=== PATIENT | male | born 1965 | race Caucasian/White ===

== ENCOUNTER 2020-12-10 06:45 | Day surgery (SDC) | payer BC ==
[~2020-12-10 06:45] MED LIST: Lactated Ringers 1,000 ML IV SCH
[2020-12-10] MEDS ORDERED: Lactated Ringers 1,000 ML IV SCH (07:00)
[2020-12-10] MEDS ORDERED: Sodium Chloride 0.9% 10 ML Syringe FLUSH PRN (07:00)
[2020-12-10] MEDS ORDERED: Citric Acid/Sodium Citrate Solution 30 ML Cup PO ONE (07:27)
[2020-12-10] MEDS ORDERED: Citric Acid/Sodium Citrate Solution 30 ML Cup ONE (07:43)
[2020-12-10] MEDS ORDERED: Propofol 200 MG/20 ML SDV ONE ×2 (07:45→08:00)
[2020-12-10] MEDS ORDERED: fentaNYL 100 MCG/2 ML SDV ONE (07:45)
[2020-12-10 08:42] VITALS: BP 134/91; PULSE 77
--- NOTE | 2020-12-10 11:32 | OR ---
PREOPERATIVE DIAGNOSIS: Family history of colon cancer. POSTOPERATIVE DIAGNOSIS: Family history of colon cancer. PROCEDURE PERFORMED: Total flexible colonoscopy. ANESTHESIA: MAC anesthesia. COMPLICATIONS: None apparent. BLOOD LOSS: None. FINDINGS: Normal total colonoscopy. START TIME: 0751. CECUM TIME: 0800. STOP TIME: 0819. BOWEL PREP: [place] class 2. INDICATIONS FOR PROCEDURE: Mr. Pate is a 55-year-old male who has a family history of colorectal cancer. His last scope was 5 years ago. He has never had any polyps. He denies a history of bloody or dark black stools. DETAILS OF PROCEDURE: After informed consent was obtained, the patient was brought to the procedure room and placed in left lateral decubitus position. MAC anesthesia was induced by Anesthesia colleagues. Colonoscope was introduced into the rectum and advanced all the way to the cecum. The appendiceal orifice was photographed. Terminal ileum was intubated and photographed. Colonoscope was then slowly withdrawn. There was a large amount of liquid stool which significantly increased the withdrawal time for this patient as we had to spend some time suctioning that. No pathology was noted. Retroflexed view was obtained and the colonoscope was withdrawn. The patient tolerated the procedure well and was awoken from anesthesia by Anesthesia colleagues without incident. RKM: 12/10/2020 08:26:37 MODL: 12/10/2020 09:39:41 /[id number]
== END 2020-12-10 09:35 | disposition home or self-care (01) ==
LOC: VM.SDS 06:45
PROVIDERS: ATTEND Student in an Organized Health Care Education/Training Program
DX: Z12.11 Encounter for screening for malignant neoplasm of colon (principal); Z80.0 Family history of malignant neoplasm of digestive organs; E11.9 Type 2 diabetes mellitus without complications; E66.9 Obesity, unspecified; I10 Essential (primary) hypertension; Z87.891 Personal history of nicotine dependence; Z79.84 Long term (current) use of oral hypoglycemic drugs; E78.49 Other hyperlipidemia; Z79.899 Other long term (current) drug therapy; Z79.82 Long term (current) use of aspirin; Z68.30 Body mass index [BMI] 30.0-30.9, adult
CPT/HCPCS: 00812; 82962; A9270-GY; J2704; J3010; J7120

== ENCOUNTER 2023-03-26 21:53 | Emergency (ER) | payer BC ==
[2023-03-26] MEDS: Proparacaine 0.5% Ophth Soln 15 ML Bottle EYELF PRN (22:36)
[2023-03-26] MEDS: Fluorescein 1 MG Ophth Strip EYELF ONE (22:37)
[2023-03-26] MEDS: Ciprofloxacin 0.3% Ophth Soln 2.5 ML Bottle EYELF ONE (22:43)
[2023-03-26 22:57] VITALS: BP 159/86; PULSE 87
== END 2023-03-26 22:56 | disposition home or self-care (01) ==
LOC: VM.ED 21:53
DX: T15.02XA Foreign body in cornea, left eye, initial encounter (principal); E78.00 Pure hypercholesterolemia, unspecified; I10 Essential (primary) hypertension; E11.9 Type 2 diabetes mellitus without complications; E66.9 Obesity, unspecified; Z79.4 Long term (current) use of insulin; Z79.82 Long term (current) use of aspirin; Z79.899 Other long term (current) drug therapy; Z68.29 Body mass index [BMI] 29.0-29.9, adult
CPT/HCPCS: 65205; 99282; 99283; A9270-GY; J3490